=== PATIENT | female | born 1950 | race Caucasian/White ===

== ENCOUNTER 2019-05-08 15:49 | Emergency (ER) | payer OTHER ==
[~2019-05-08] VITALS: Ht 157.5 cm; Wt 77.1 kg
[2019-05-08] MEDS ORDERED: ALTACE10 MG (16:08)
== END 2019-05-08 19:11 | disposition home or self-care (01) ==
LOC: ER 15:49
DX: S90.32XA Contusion of left foot, initial encounter (principal); W20.8XXA Other cause of strike by thrown, projected or falling object, initial encounter; Y93.89 Activity, other specified; Y92.098 Other place in other non-institutional residence as the place of occurrence of the external cause; Y99.8 Other external cause status

== ENCOUNTER 2019-09-17 16:30 | Emergency (ER) | payer OTHER ==
[~2019-09-17] VITALS: Ht 157.5 cm; Wt 77.1 kg
[~2019-09-17 16:30] MED LIST: ALTACE10 MG
[2019-09-17] MEDS ORDERED: PREDNISONA (17:22)
== END 2019-09-17 22:45 | disposition home or self-care (01) ==
LOC: ER 16:30
DX: K29.60 Other gastritis without bleeding (principal); M54.89 Other dorsalgia; R10.13 Epigastric pain